=== PATIENT | male | born 1960 | race Two or more races ===

== ENCOUNTER 2023-04-15 23:32 | Inpatient (IN) | payer OTHER ==
[~2023-04-15] VITALS: Ht 177.8 cm; Wt 62.6 kg
== END 2023-04-22 15:05 | disposition home or self-care (01) | DRG 641 ==
LOC: ER 23:32 → MEDI 04-16 13:46 → SEC-K 04-16 13:46 → MEDI 04-16 16:42
PROVIDERS: ADMIT Internal Medicine; ATTEND Internal Medicine
PROC: BW28ZZZ Computerized Tomography (CT Scan) of Head (ICD-10-PCS; 2023-04-16)
PROC: BR20ZZZ Computerized Tomography (CT Scan) of Cervical Spine (ICD-10-PCS; 2023-04-16)
PROC: B54DZZZ Ultrasonography of Bilateral Lower Extremity Veins (ICD-10-PCS; principal; 2023-04-17)
PROC: B24BYZZ Ultrasonography of Heart with Aorta using Other Contrast (ICD-10-PCS; 2023-04-17)
PROC: BW28ZZZ Computerized Tomography (CT Scan) of Head (ICD-10-PCS; 2023-04-20)
DX: E86.0 Dehydration (principal); I82.403 Acute embolism and thrombosis of unspecified deep veins of lower extremity, bilateral; L97.529 Non-pressure chronic ulcer of other part of left foot with unspecified severity; L97.519 Non-pressure chronic ulcer of other part of right foot with unspecified severity; L08.9 Local infection of the skin and subcutaneous tissue, unspecified; E63.9 Nutritional deficiency, unspecified; R41.0 Disorientation, unspecified; I87.2 Venous insufficiency (chronic) (peripheral)